=== PATIENT | male | born 1975 | race Caucasian/White ===

== ENCOUNTER 2016-10-04 22:28 | Emergency (ER) | payer MEDICAID ==
[~2016-10-04] VITALS: Ht 165.1 cm; Wt 85.5 kg
[~2016-10-04 22:28] MED LIST: LEVO500T72 PO; NAPR-260 PO
[2016-10-04 22:34] VITALS: Ht 165.1 cm; Wt 85.5 kg
[2016-10-05] MEDS ORDERED: HYDR-906 PO (01:29)
[2016-10-05] MEDS ORDERED: HYDROCODONE/APAP (5/325) TAB PO ONE (01:30)
[2016-10-05] MEDS ORDERED: NAPR-260 PO (01:30)
[2016-10-05] MEDS ORDERED: CYCL-319 PO (01:30)
--- NOTE | 2016-10-05 01:46 | ERD ---
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 Patient states that his pain is constant and localized to the right lower back region. Patient denies any radiation of the pain down his leg. Patient denies any numbness or tingling down his legs. Patient states that his current pain level is an 8 out of 10. Patient states the pain is worse with movement. Patient states he has been taking ibuprofen with minimal alleviation of symptoms. Denies any saddle anesthesia, urinary incontinence, stool incontinence, fevers, chills, night pain or recent trauma or falls. Patient denies any dysuria, urinary frequency, urgency or hematuria. 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 ROS All systems reviewed and are negative except as per history of present illness. Medications Home Meds Active Scripts Cyclobenzaprine Hcl* (Cyclobenzaprine Hcl*) 10 Mg Tablet, 10 MG PO TID, #15 TAB Prov:VINH CORNELIUS PA-C 10/05/16 Naproxen* (Naprosyn*) 500 Mg Tablet, 500 MG PO BID Y for PAIN AND/OR INFLAMMATION, #30 TAB Prov:VINH CORNELIUS PA-C 10/05/16 Hydrocodone/Acetaminophen ([place] 5-325 Tablet) 1 Each Tablet, 1 TAB PO Q6H Y for PAIN, #10 TAB Prov:VINH CORNELIUS PA-C 10/05/16 Naproxen* (Naprosyn*) 500 Mg Tablet, 500 MG PO BID Y for PAIN AND/OR INFLAMMATION, #30 TAB Prov:ANGEL LUIS WATT 12/08/15 Levofloxacin* (Levaquin*) 500 Mg Tablet, 500 MG PO DAILY for 10 Days, TAB Prov:ANGEL LUIS WATT C 12/08/15 Allergies Allergies: Coded Allergies: No Known Allergy (Unverified , 12/08/15) PMhx/Soc Medical and Surgical Hx: pt denies Medical Hx, pt denies Surgical Hx Hx Alcohol Use: Yes (social) Hx Substance Use: No Hx Tobacco Use: No Smoking Status: Never smoker FmHx Family History: No diabetes Physical Exam Vitals Vital Signs Date Time Temp Pulse Resp B/P Pulse Ox O2 Delivery O2 Flow Rate FiO2 10/04/16 22:34 97.0 62 18 144/92 99 Physical Exam GENERAL: Well-developed, well-nourished male. Appears in no acute distress. Speaking in full sentences HEAD: Normocephalic, atraumatic. EYES: Pupils are equally reactive bilaterally. EOMs grossly intact. No conjunctival erythema. ENT: Moist mucous membranes. No uvula deviation. No kissing tonsils. NECK: Supple. No meningismus. Normal range of motion of the neck. No cervical spine midline tenderness. LUNG: Clear to auscultation bilaterally. No rhonchi, wheezing, rales or coarse breath sounds. HEART: Regular rate and rhythm. No murmurs, rubs or gallops. ABDOMEN: No scars, ecchymosis or rashes noted. Soft, nontender, and nondistended. Positive bowel sounds in all four quadrants. No rebound tenderness , no guarding. (-) McBurney's point tenderness. No CVA tenderness. BACK: No midline tenderness. Tender to palpation of the right lumbar paraspinalis muscles. Negative straight leg raise bilaterally. EXTREMITIES: Equal pulses bilaterally. No peripheral clubbing, cyanosis or edema. No unilateral leg swelling. NEUROLOGIC: Alert and oriented. Moving all four extremities without any difficulty. Normal speech. Steady gait. SKIN: Normal color. Warm and dry. No rashes or lesions. Results 24 hrs Current Medications Medications (Trade) Dose Ordered Sig/Jayla Route PRN Reason Start Time Stop Time Status Last Admin Dose Admin Acetaminophen/ Hydrocodone Bitart ([place] (5/325)) 1 tab ONCE ONCE PO 10/05/16 01:30 10/05/16 01:31 DC 10/05/16 01:37 Procedures/MDM ED COURSE: The patient was stable throughout ED course. I kept the patient and/or family informed of laboratory and diagnostic imaging results throughout the ED course. MEDICATIONS GIVEN: Austin Patient tolerated medication well with no adverse reactions. Patient reported improvement in pain. MEDICAL DECISION MAKING: This is a 41-year-old male who presents with lower back pain 4 days. Patient admits to working in the construction industry. Patient states his pain is worse with movement. Vital signs were reviewed. Patient was afebrile. Patient denied any saddle anesthesia, urinary incontinence, bowel incontinence, night pain or recent trauma. The patient denied any recent trauma or falls, there was no indication for x-ray imaging at this time. Patient denied any urinary frequency, urgency, dysuria or hematuria. Given these findings, the patient's presentation is most consistent with lumbar strain versus muscle spasms. I have a much lower clinical concern for cauda equine syndrome, spinal fractures, epidural abscess, spinal metastases, osteomyelitis, aortic dissection, DJD, sciatica, UTI, pyelonephritis or nephrolithiasis. PRESCRIPTIONS: Austin Naproxen Flexeril DISCHARGE: At this time, patient is stable for discharge and outpatient management. A work note was provided for the patient to avoid any heavy lifting for the next week. RICE therapy and ROM exercises were advised to avoid stiffness. I have instructed the patient to follow-up with his/her primary care physician in 1-2 days. I have discussed with the patient the possibility of needing to see an title curative specialist for further workup and imaging if the pain persists. I have instructed the patient to promptly return to the ER for any new or worsening symptoms including increased pain, swelling, warmth, urinary incontinence, stool incontinence, weakness or numbness. The patient and/or family expressed understanding of and agreement with this plan. All questions were answered. Home care instructions were provided. Patient's blood pressure was elevated (>120/80) but appears stable without evidence of hypertensive emergency, hypertensive urgency or end-organ failure. I had discussion with the patient about the risks of hypertension. I have advised the patient to follow up with his/her primary care physician for outpatient monitoring and treatment for hypertension in 2-3 days. I have instructed the patient to return to the ER for any new or worsening symptoms including chest pain, shortness of breath, headache, blurred vision, confusion, nausea, vomiting or LOC. Departure Diagnosis: Primary Impression: Back pain Back pain location: back pain in unspecified location Chronicity: unspecified Back pain laterality: bilateral Qualified Code: M54.9 - Bilateral back pain, unspecified back location, unspecified chronicity Condition: Stable Patient Instructions: Back Pain (Acute Or Chronic) Referrals: COMMUNITY CLINICS YOU HAVE RECEIVED A MEDICAL SCREENING EXAM AND THE RESULTS INDICATE THAT YOU DO NOT HAVE A CONDITION THAT REQUIRES URGENT TREATMENT IN THE EMERGENCY DEPARTMENT. FURTHER EVALUATION AND TREATMENT OF YOUR CONDITION CAN WAIT UNTIL YOU ARE SEEN IN YOUR DOCTORS OFFICE WITHIN THE NEXT 1-2 DAYS. IT IS YOUR RESPONSIBILITY TO MAKE AN APPOINTMENT FOR FOLOW-UP CARE. IF YOU HAVE A PRIMARY DOCTOR --you should call your primary doctor and schedule an appointment IF YOU DO NOT HAVE A PRIMARY DOCTOR YOU CAN CALL OUR PHYSICIAN REFERRAL HOTLINE AT IF YOU CAN NOT AFFORD TO SEE A PHYSICIAN YOU CAN CHOSE FROM THE FOLLOWING [facility] [address] [facility] [address] [facility]. [facility] [address] [facility] [address] [facility] [address] [facility]. [facility] [address] [facility]. [facility] YOU HAVE RECEIVED A MEDICAL SCREENING EXAM AND THE RESULTS INDICATE THAT YOU DO NOT HAVE A CONDITION THAT REQUIRES URGENT TREATMENT IN THE EMERGENCY DEPARTMENT. FURTHER EVALUATION AND TREATMENT OF YOUR CONDITION CAN WAIT UNTIL YOU ARE SEEN IN YOUR DOCTORS OFFICE WITHIN THE NEXT 1-2 DAYS. IT IS YOUR RESPONSIBILITY TO MAKE AN APPOINTMENT FOR FOLOW-UP CARE. IF YOU HAVE A PRIMARY DOCTOR --you should call your primary doctor and schedule and appointment IF YOU DO NOT HAVE A PRIMARY DOCTOR YOU CAN CALL OUR PHYSICIAN REFERRAL HOTLINE AT . IF YOU CAN NOT AFFORD TO SEE A PHYSICIAN YOU CAN CHOSE FROM THE FOLLOWING [facility]: [facility] [address] [place] [address] [facility] [address] [place] [address] [facility] [address] [place] [address] [facility] Hours: Mon-Fri 9:00 AM - 5:00 PM Additional Instructions: Llame al doctor MAANA y patricia ronnie BALTAZAR PARA DENTRO DE 1-2 BELLAMY.Dgale a la secretaria que nosotros le instruimos hacer esta baltazar.Avise o llame si renteria condicin se empeora antes de la baltazar. Regresa aqui si peor o no mejor. VINH CORNELIUS PA-C Oct 05, 2016 01:41
== END 2016-10-05 01:47 | disposition home or self-care (01) ==
LOC: FTE 22:28
DX: M54.5 Low back pain (principal)
CPT/HCPCS: Z7502; Z7610; 99284

== ENCOUNTER 2017-11-19 16:28 | Emergency (ER) | END 2017-11-19 22:58 | disposition home or self-care (01) ==

== ENCOUNTER 2018-10-23 17:32 | Emergency (ER) | payer MEDICAID ==
[~2018-10-23] VITALS: Ht 167.6 cm; Wt 86.1 kg
[~2018-10-23 17:32] MED LIST changes: +CYCL10TA7 PO; +HYDR-4011 PO; +LEVO500T48 PO; -LEVO500T72 PO; -NAPR-260 PO; +NAPR-985 PO
[2018-10-23 17:45] VITALS: BP 160/100; PULSE 70; RESP 18; Ht 167.6 cm; Wt 86.1 kg
[2018-10-23] MEDS ORDERED: KETOROLAC 30 MG INJ IM STA (19:38)
--- NOTE | 2018-10-23 19:40 | ERD ---
ER Documentation Chief Complaint Chief Complaint left tessicular pain x3 days HPI 43-year-old male with no reported past medical history, history of left-sided epididymitis in 2016 who presents with complaint of left testicular pain and anal pain. Patient states pain began abruptly 3 days ago but reports no injury or trauma to the area. He described as dull deep kind pain localized to the left testicle without radiation. Denies any rash to the area of groin scrotum. Has had some mild anal pain but denies any history of hemorrhoids, bleeding or bloody stools, anal sex. Also complained of dysuria. Denies any history of STIs, sexually active with one partner, no condom use. At time examination patient is nontoxic-appearing with normal triage vital signs. ROS All systems reviewed and are negative except as per history of present illness. Medications Home Meds Active Scripts Naproxen* (Naprosyn*) 500 Mg Tablet, 500 MG PO BID PRN for PAIN AND/OR INFLAMMATION, #30 TAB Prov:CARIDAD NARANJO PA-C 10/23/18 Naproxen* (Naprosyn*) 500 Mg Tablet, 500 MG PO BID PRN for PAIN AND/OR INFLAMMATION, #30 TAB Prov:DAFNE PETERSON MD 11/19/17 Cyclobenzaprine Hcl* (Cyclobenzaprine Hcl*) 10 Mg Tablet, 10 MG PO TID, #15 TAB Prov:VINH CORNELIUS PA-C 10/05/16 Naproxen* (Naprosyn*) 500 Mg Tablet, 500 MG PO BID PRN for PAIN AND/OR INFLAMMATION, #30 TAB Prov:VINH CORNELIUS PA-C 10/05/16 Hydrocodone/Acetaminophen ([place] 5-325 Tablet) 1 Each Tablet, 1 TAB PO Q6H PRN for PAIN, #10 TAB Prov:VINH CORNELIUS PA-C 10/05/16 Naproxen* (Naprosyn*) 500 Mg Tablet, 500 MG PO BID PRN for PAIN AND/OR INFLAMMATION, #30 TAB Prov:ANGEL LUIS WATT 12/08/15 Levofloxacin* (Levaquin*) 500 Mg Tablet, 500 MG PO DAILY for 10 Days, TAB Prov:ANGEL LUIS WATT 12/08/15 Allergies Allergies: Coded Allergies: No Known Allergy (Unverified , 12/08/15) PMhx/Soc History of Surgery: No Anesthesia Reaction: No Hx Neurological Disorder: No Hx Respiratory Disorders: No Hx Cardiac Disorders: No Hx Psychiatric Problems: No Hx Miscellaneous Medical Probl: No Hx Alcohol Use: Yes (social) Hx Substance Use: No Hx Tobacco Use: No Smoking Status: Never smoker FmHx Family History: No diabetes, No coronary disease, No other Physical Exam Vitals Vital Signs Date Temp Pulse Resp B/P (MAP) Pulse Ox O2 O2 Flow FiO2 Time Delivery Rate 10/23/18 98.2 70 18 160/100 98 17:45 (120) Physical Exam I have reviewed the triage vital signs. Const: Well nourished, well developed, appears stated age Eyes: PERRL, no conjunctival injection HENT: NCAT, Neck supple without meningismus CV: RRR, Warm, well-perfused extremities RESP: CTAB, Unlabored respiratory effort GI: soft, non-tender, non-distended, no masses : Left testicle mild swelling, no significant erythema, tender to palpation, cremasteric reflex intact bilaterally, anal area with no erythema or swelling or signs of hemorrhoids MSK: No gross deformities appreciated Skin: Warm, dry. No rashes Neuro: grossly non focal Psych: Appropriate mood and affect. Results 24 hrs Laboratory Tests Test 10/23/18 19:50 Urine Color STRAW Urine Clarity CLEAR Urine pH 6.0 Urine Specific Lester 1.013 Urine Ketones NEGATIVE mg/dL Urine Nitrite NEGATIVE mg/dL Urine Bilirubin NEGATIVE mg/dL Urine Urobilinogen NEGATIVE mg/dL Urine Leukocyte Esterase NEGATIVE Jeffery/ul Urine Hemoglobin NEGATIVE mg/dL Urine Glucose NEGATIVE mg/dL Urine Total Protein NEGATIVE mg/dl Current Medications Medications Dose Sig/Jayla Start Time Status Last (Trade) Ordered Route PRN Stop Time Admin Dose Reason Admin Ketorolac 30 mg ONCE STAT 10/23/18 DC 10/23/18 Tromethamine IM 19:38 20:10 (Toradol) 10/23/18 19:40 Procedures/MDM 43-year-old male who presents with complaint of left testicular pain and anal pain. The cause of his testicular pain is unclear. Scrotal ultrasound is completely unremarkable. The patient is suffering from testicular pain, but based on the history, exam, and testing, I do not suspect that the patient has testicular torsion, abscess, severe cellulitis, Fourniers gangrene, or other emergent cause as below: Unlikely torsion: No pain currently, cremasteric reflex present Unlikely varicocele: no visibly or palpably enlarged vein Unlikely epididymitis: no urethral discharge, no fever, no MSM, no epididymal TTP or swelling ultrasound without evidence of such. Plan follow up with primary care doctor for symptom re-check and possible referral to urology. Discussed return precautions at bedside. Discharge. ED course: Ultrasound Pain medication DISPOSITION PLAN: We discussed follow up with the patient's primary care doctor within 24 to 48 hours. Patient counseled regarding my diagnostic impression and care plan. Prior to discharge all questions answered. Pt agrees with treatment plan and understands strict return precautions. Precautionary instructions provided including instructions to return to the ER if not improving or for any worsening or changing symptoms or concerns. Disclaimer: Inadvertent spelling and grammatical errors are likely due to EHR/dictation software use and do not reflect on the overall quality of patient care. Also, please note that the electronic time recorded on this note does not necessarily reflect the actual time of the patient encounter. Departure Diagnosis: Primary Impression: Pain in testicle Condition: Stable CARIDAD NARANJO PA-C Oct 23, 2018 19:40
[2018-10-23] MEDS ORDERED: NAPR-985 PO (21:48)
== END 2018-10-23 22:13 | disposition home or self-care (01) ==
LOC: FTE 17:32
DX: N50.812 Left testicular pain (principal)
CPT/HCPCS: 76870; 81003; J1885; 96372